=== PATIENT | male | born 1985 | race Caucasian/White ===

== ENCOUNTER 2017-02-12 13:05 | Inpatient (IN) | payer SELFPAY ==
[2017-02-12 14:53] VITALS: BMI 21.7
--- NOTE | 2017-02-12 15:42 | HP ---
COWS - Scale Resting Pulse: 0= [place] 80 or Below Sweatin=Flushed/Facial Moisture Restless Observation: 1= Difficult to Sit Still Pupil Size: 0= Normal to Room Light Bone or Joint Aches: 2= Severe Diffuse Aches Runny Nose/ Eye Tearin= Runny Nose/Eyes GI Upset > 30mins: 0= None Tremor Observation: 2= Slight Tremor Visible Yawning Observation: 2= >3x During Session Anxiety or Irritability: 2=Irritable/Anxious Goose Flesh Skin: 3=Piloerection COWS Score: 16 CIWA Score - CIWA Score Nausea/Vomitin-No Nausea/No Vomiting Muscle Tremors: 4-Moderate,w/Arms Extend Anxiety: 3 Agitation: 4-Moderately Restless Paroxysmal Sweats: 3 Orientation: 0-Oriented Tacttile Disturbances: 0-None Auditory Disturbances: 0-None Visual Disturbances: 0-None Headache: 1-Very Mild CIWA-Ar Total Score: 15 Admission ROS BHS - HPI Chief Complaint: I am here to detox off these drugs. Allergies/Adverse Reactions: Allergies Allergy/AdvReac Type Severity Reaction Status Date / Time No Known Allergies Allergy Verified 02/12/17 15:16 History of Present Illness: pt is a 31yr old male with a history of heroin and alcohol dependence seeking detox for treatment. Exam Limitations: No Limitations - Ebola screening Have you traveled outside of the country in the last 21 days: No Have you had contact with anyone from an Ebola affected area: No Have you been sick,other than usual withdrawal symptoms: No Do you have a fever: No - Review of Systems Constitutional: Chills, Diaphoresis, Loss of Appetite, Night Sweats, Changes in sleep, Unintentional Wgt. Loss Respiratory: reports: No Symptoms reported Cardiac: reports: No Symptoms Reported GI: reports: Poor Appetite, Poor Fluid Intake : reports: No Symptoms Reported Musculoskeletal: reports: Back Pain, Muscle Pain Integumentary: reports: Flushing, Sweating Neuro: reports: Tingling, Tremors Endocrine: reports: Excessive Sweating, Flushing Hematology: reports: No Symptoms Reported Psychiatric: reports: Judgement Intact, Orientated x3, Agitated, Anxious Other Systems: Reviewed and Negative Patient History - Patient Medical History Hx Anemia: No Hx Asthma: No Hx Chronic Obstructive Pulmonary Disease (COPD): No Hx Cancer: No Hx Cardiac Disorders: No Hx Congestive Heart Failure: No Hx Hypertension: No Hx Hypercholesterolemia: No Hx Pacemaker: No HX Cerebrovascular Accident: No Hx Seizures: No Hx Dementia: No Hx Diabetes: No Hx Gastrointestinal Disorders: Yes (ulcerative colitis) Hx Liver Disease: No Hx Genitourinary Disorders: No Hx Sexually Transmitted Disorders: No Hx Renal Disease (ESRD): No Hx Thyroid Disease: No Hx Human Immunodeficiency Virus (HIV): No (negative) Hx Hepatitis C: No (negative) Hx Depression: Yes Hx Suicide Attempt: No (denies) Hx Bipolar Disorder: No Hx Schizophrenia: No Other Medical History: insomnia/anxiety - Patient Surgical History Past Surgical History: No Hx Neurologic Surgery: No Hx Cataract Extraction: No Hx Cardiac Surgery: No Hx Lung Surgery: No Hx Breast Surgery: No Hx Breast Biopsy: No Hx Abdominal Surgery: No Hx Appendectomy: No Hx Cholecystectomy: No Hx Genitourinary Surgery: No Hx Section: No Hx Orthopedic Surgery: No Anesthesia Reaction: Yes - PPD History Previous Implant?: Yes Documented Results: Negative w/o proof Implanted On Prior R Admission?: No PPD to be Administered?: Yes - Reproductive History Patient is a Female of Child Bearing Age (11 -55 yrs old): No - Smoking Cessation Smoking history: Current every day smoker Have you smoked in the past 12 months: Yes Aproximately how many cigarettes per day: 30 Hx Chewing Tobacco Use: No Initiated information on smoking cessation: Yes 'Breaking Loose' booklet given: 02/12/17 - Substance & Tx. History Hx Alcohol Use: Yes Hx Substance Use: Yes Substance Use Type: Alcohol, Cocaine, Heroin Hx Substance Use Treatment: Yes - Substances Abused Heroin Route: Injection Frequency: Daily Amount used: 30 bags Age of first use: 17 Date of Last Use: 02/11/17 Cocaine Route: Injection Frequency: Daily Amount used: $150 Age of first use: 25 Date of Last Use: 02/12/17 Alcohol-rum Route: Oral Frequency: Daily Amount used: 1/2 liter Age of first use: 14 Date of Last Use: 02/11/17 Family Disease History - Family Disease History Family History: Denies Admission Physical Exam BHS - Vital Signs Vital Signs: Vital Signs - 24 hr 02/12/17 14:50 Temperature 97.0 F L Pulse Rate 71 Respiratory 18 Rate Blood Pressure 132/71 - Physical General Appearance: Yes: Appropriately Dressed, Moderate Distress, Thin, Tremorous, Irritable, Sweating, Anxious HEENTM: Yes: Normal Voice Respiratory: Yes: Lungs Clear, Normal Breath Sounds, No Respiratory Distress Neck: Yes: No masses,lesions,Nodules Breast: Yes: Within Normal Limits Cardiology: Yes: Regular Rhythm, Regular Rate, S1, S2 Abdominal: Yes: Normal Bowel Sounds Genitourinary: Yes: Within Normal Limits Back: Yes: Normal Inspection Musculoskeletal: Yes: Within Normal Limits Extremities: Yes: Normal Capillary Refill, Non-Tender, Tremors Neurological: Yes: Fully Oriented, Alert, Normal Response Integumentary: Yes: Normal Color, Diaphoresis, Track Hughes Lymphatic: Yes: Within Normal Limits - Diagnostic (1) Alcohol dependence with uncomplicated withdrawal Current Visit: Yes Status: Chronic (2) Cocaine dependence, uncomplicated Current Visit: Yes Status: Chronic (3) Nicotine dependence Current Visit: Yes Status: Chronic Qualifiers: Nicotine product type: cigarettes Substance use status: uncomplicated Qualified Code(s): F17.210 - Nicotine dependence, cigarettes, uncomplicated (4) Opioid dependence with withdrawal Current Visit: Yes Status: Chronic (5) H/O ulcerative colitis Current Visit: Yes Status: Inactive Cleared for Admission [facility] - Detox or Rehab [facility] Level of Care: Medically Managed Detox Regimen/Protocol: Methadone/Librium [facility] Breath Alcohol Content Breath Alcohol Content: 0 Urine Drug Screen - Results Drug Screen Negative: No Urine Drug Screen Results: THC-Marijuana, NIXON-Cocaine, OPI-Opiates, OXY- Oxycodone
[2017-02-12] MEDS ORDERED: IBUPROFEN 400 MG TABLET (FP) PO PRN (15:43)
[2017-02-12] MEDS ORDERED: ACETAMINOPHEN 325 MG TABLET (FP) PO PRN (15:43)
[2017-02-12] MEDS ORDERED: diphenhydrAMINE HCL 50 MG CAPSULE PO PRN (15:43)
[2017-02-12] MEDS ORDERED: MAGNESIUM CITRATE 300 ML BOTTLE PO PRN (15:43)
[2017-02-12] MEDS ORDERED: MAG HYDROX/AL HYDROX/SIMETH 30 ML UNIT-DOSE CUP PO PRN (15:43)
[2017-02-12] MEDS ORDERED: MENTHOL/PHENOL 1 EACH UD MM PRN (15:43)
[2017-02-12] MEDS ORDERED: LOPERAMIDE HCL 2 MG CAPSULE PO PRN (15:43)
[2017-02-12] MEDS ORDERED: MAGNESIUM HYDROX 2400MG/30ML ORAL SUSPENSION 30 ML CUP PO PRN (15:43)
[2017-02-12] MEDS ORDERED: chlordiazePOXIDE HCL 25 MG CAPSULE PO PRN (15:43)
[2017-02-12] MEDS ORDERED: P-EPHED 60MG/TRIPROLIDI 2.5MG TABLET PO PRN (15:43)
[2017-02-12] MEDS ORDERED: guaiFENesin/D-METHORPHAN HB 10 ML UNIT-DOSE CUPS PO PRN (15:43)
[2017-02-12] MEDS ORDERED: hydrOXYzine PAMOATE 50 MG CAPSULE (FP) PO PRN (15:43)
[2017-02-12] MEDS ORDERED: NICOTINE POLACRILEX 4 MG GUM BC PRN (15:43)
[2017-02-12] MEDS ORDERED: chlordiazePOXIDE HCL 25 MG CAPSULE PO ONE (17:30)
[2017-02-12] MEDS ORDERED: METHADONE HCL 10 MG TABLET (FOR DETOX USE ONLY) PO ONE ×2 (17:30→23:00)
[2017-02-12] MEDS: BACITRACIN 0.9 GM PACKET TP SCH (17:34)
[2017-02-12] MEDS: chlordiazePOXIDE HCL 25 MG CAPSULE PO SCH ×2 (17:34→22:33)
[2017-02-12] MEDS ORDERED: THIAMINE HCL 100 MG TABLET (FP) PO SCH (22:00)
[2017-02-12 23:16] LABS: URINE APPEARANCE SLCLOUDY; URINE BILIRUBIN NEGATIVE (NEGATIVE); URINE BLOOD NEGATIVE (NEGATIVE); URINE COLOR YELLOW; URINE GLUCOSE (UA) NEGATIVE (NEGATIVE); URINE KETONE NEGATIVE (NEGATIVE); URINE LEUK ESTERASE NEGATIVE (NEGATIVE); URINE NITRITE NEGATIVE (NEGATIVE); URINE PROTEIN NEGATIVE (NEGATIVE); URINE UROBILINOGEN 2.0 E.U/dl E.U./dl (0.2-1.0)
[2017-02-13] MEDS: chlordiazePOXIDE HCL 25 MG CAPSULE PO SCH ×2 (06:04→10:33)
[2017-02-13 09:56] LABS: MCH 28.6 pg (25.7-33.7); MCHC 33.3 g/dl (32.0-35.9); MEAN CELL VOLUME 85.7 fl (80-96); MEAN PLT VOLUME 8.1 fl (7.5-11.1); PLATELET COUNT 416 K/MM3 (134-434); RDW 14.5 % (11.9-15.9); WHITE BLOOD COUNT 10.1 K/mm3 (4.0-10.0)
[2017-02-13] MEDS ORDERED: PRENATAL VITAMINS W/ FOLIC ACID TABLET (FP) PO SCH (10:00)
[2017-02-13] MEDS ORDERED: METHADONE HCL 10 MG TABLET (FOR DETOX USE ONLY) PO SCH (10:00)
[2017-02-13] MEDS ORDERED: NICOTINE 21 MG/24 HOURS TOPICAL PATCH TD SCH (10:00)
[2017-02-13] MEDS: BACITRACIN 0.9 GM PACKET TP SCH (10:33)
[2017-02-13 10:44] LABS: ALBUMIN 3.4 g/dl (3.4-5.0); ALK PHOS 95 U/L (45-117); ANION GAP 8 (8-16); BILIRUBIN,TOTAL 0.3 mg/dL (0.2-1.0); CALCIUM 8.6 mg/dL (8.5-10.1); CO2 29 mmol/L (21-32); CREATININE 0.9 mg/dL (0.7-1.3); GLUCOSE,RANDOM 79 mg/dL (74-106); SGOT/AST 11 U/L (15-37); SGPT/ALT 29 U/L (12-78); TOT PROT 6.8 g/dl (6.4-8.2)
[2017-02-13 10:44] LABS: HIV 1 & 2 AB NEGATIVE; HIV 1 AGp24 NEGATIVE
--- NOTE | 2017-02-13 11:30 | CONSULT ---
[facility] Psychiatric Consult - Data Date of interview: 02/13/17 Admission source: [facility] Identifying data: Mr Velasco is a 31 years oldsingle male, unemployed with no source of income, homeless seeking detox treatment for alcohol, heroin and cocaine Substance Abuse History: - Smoking Cessation. Smoking history: Current every day smoker. Have you smoked in the past 12 months: Yes. Aproximately how many cigarettes per day: 30. Hx Chewing Tobacco Use: No. Initiated information on smoking cessation: Yes. 'Breaking Loose' booklet given: 02/12/17. - Substance & Tx. History. Hx Alcohol Use: Yes. Hx Substance Use: Yes. Substance Use Type : Alcohol, Cocaine, Heroin. Hx Substance Use Treatment: Yes. - Substances Abused. Heroin. Route: Injection. Frequency: Daily. Amount used: 30 bags. Age of first use: 17. Date of Last Use: 02/11/17. Cocaine. Route: Injection. Frequency: Daily. Amount used: $150. Age of first use: 25. Date of Last Use: 02/12/17. Alcohol-rum. Route: Oral. Frequency: Daily. Amount used: 1/2 liter. Age of first use: 14. Date of Last Use: 02/11/17 Medical History: Significant for Ulverative Colitis. Smokes cigarettes 1.5ppd Psychiatric History: Denies history of previous psychiatric treatment. However, reports feeling anxious and experiencing difficulty to sleep at present Mental Status Exam - Mental Status Exam Alert and Oriented to: Time, Place, Person Cognitive Function: Fair Patient Appearance: Well Groomed Mood: Anxious Affect: Appropriate Patient Behavior: Cooperative Speech Pattern: Clear Voice Loudness: Normal Thought Process: Intact Thought Disorder: Not Present Hallucinations: Denies Suicidal Ideation: Denies Homicidal Ideation: Denies Insight/Judgement: Poor Sleep: Poorly Appetite: Good Muscle strength/Tone: Normal Gait/Station: Normal Psychiatric Findings - Problem List ([place] 1, 2,3) (1) Substance-induced anxiety disorder Current Visit: Yes Status: Acute (2) Substance-induced sleep disorder Current Visit: Yes Status: Acute (3) Alcohol dependence with uncomplicated withdrawal Current Visit: Yes Status: Chronic (4) Opioid dependence with withdrawal Current Visit: Yes Status: Chronic (5) Cocaine dependence, uncomplicated Current Visit: Yes Status: Chronic (6) Nicotine dependence Current Visit: Yes Status: Chronic Qualifiers: Nicotine product type: cigarettes Substance use status: uncomplicated Qualified Code(s): F17.210 - Nicotine dependence, cigarettes, uncomplicated (7) H/O ulcerative colitis Current Visit: Yes Status: Inactive - Initial Treatment Plan Initial Treatment Plan: Start Ambien 10 mg po HS prn for insomnia. Benefits vs Risks of medication discussed with patient and he agreed to try it
--- NOTE | 2017-02-13 12:16 | PN ---
[facility] CIWA - CIWA Score Nausea/Vomitin Muscle Tremors: 4-Moderate,w/Arms Extend Anxiety: 2 Agitation: 2 Paroxysmal Sweats: 3 Orientation: 0-Oriented Tacttile Disturbances: 0-None Auditory Disturbances: 2-Mild Harshness/Frighten Visual Disturbances: 0-None Headache: 0-None Present CIWA-Ar Total Score: 16 BHS COWS - Scale Resting Pulse: 1= [place] 81-100 Sweatin= Chills/Flushing Restless Observation: 1= Difficult to Sit Still Pupil Size: 0= Normal to Room Light Bone or Joint Aches: 2= Severe Diffuse Aches Runny Nose/ Eye Tearin= Nasal Congestion GI Upset > 30mins: 1= Stomach Cramp Tremor Observation of Outstretched Hands: 2= Slight Tremor Visible Yawning Observation: 1= 1-2x During Session Anxiety or Irritability: 2=Irritable/Anxious Goose Flesh Skin: 3=Piloerection COWS Score: 15 S Progress Note (SOAP) Subjective: Interrupted Sleep, Sweating, Stomach cramping, Body Aches, Tremors. Objective: PT. A & O X 3. 02/13/17 12:13 Vital Signs Temperature 98.4 F 02/13/17 09:15 Pulse Rate 90 02/13/17 09:15 Respiratory Rate 20 02/13/17 09:15 Blood Pressure 129/82 02/13/17 09:15 O2 Sat by Pulse Oximetry (%) Laboratory Last Values WBC 10.1 K/mm3 (4.0-10.0) H 02/13/17 06:00 RBC 4.38 M/mm3 (4.00-5.60) 02/13/17 06:00 Hgb 12.5 GM/dL (11.7-16.9) 02/13/17 06:00 Hct 37.6 % (35.4-49) 02/13/17 06:00 MCV 85.7 fl (80-96) 02/13/17 06:00 MCHC 33.3 g/dl (32.0-35.9) 02/13/17 06:00 RDW 14.5 % (11.9-15.9) 02/13/17 06:00 Plt Count 416 K/MM3 (134-434) 02/13/17 06:00 MPV 8.1 fl (7.5-11.1) 02/13/17 06:00 Sodium 139 mmol/L (136-145) 02/13/17 06:00 Potassium 4.3 mmol/L (3.5-5.1) 02/13/17 06:00 Chloride 102 mmol/L (98-107) 02/13/17 06:00 Carbon Dioxide 29 mmol/L (21-32) 02/13/17 06:00 Anion Gap 8 (8-16) 02/13/17 06:00 BUN 20 mg/dL (7-18) H 02/13/17 06:00 Creatinine 0.9 mg/dL (0.7-1.3) 02/13/17 06:00 Creat Clearance w eGFR > 60 (>60) 02/13/17 06:00 Random Glucose 79 mg/dL (74-106) 02/13/17 06:00 Calcium 8.6 mg/dL (8.5-10.1) 02/13/17 06:00 Total Bilirubin 0.3 mg/dL (0.2-1.0) 02/13/17 06:00 AST 11 U/L (15-37) L 02/13/17 06:00 ALT 29 U/L (12-78) 02/13/17 06:00 Alkaline Phosphatase 95 U/L (45-117) 02/13/17 06:00 Total Protein 6.8 g/dl (6.4-8.2) 02/13/17 06:00 Albumin 3.4 g/dl (3.4-5.0) 02/13/17 06:00 Urine Color Yellow 02/12/17 23:00 Urine Appearance Slcloudy 02/12/17 23:00 Urine pH 6.0 (5.0-8.0) 02/12/17 23:00 Ur Specific [place] 1.025 (1.001-1.035) 02/12/17 23:00 Urine Protein Negative (NEGATIVE) 02/12/17 23:00 Urine Glucose (UA) Negative (NEGATIVE) 02/12/17 23:00 Urine Ketones Negative (NEGATIVE) 02/12/17 23:00 Urine Blood Negative (NEGATIVE) 02/12/17 23:00 Urine Nitrite Negative (NEGATIVE) 02/12/17 23:00 Urine Bilirubin Negative (NEGATIVE) 02/12/17 23:00 Urine Urobilinogen 2.0 e.u/dl E.U./dl (0.2-1.0) 02/12/17 23:00 Ur Leukocyte Esterase Negative (NEGATIVE) 02/12/17 23:00 RPR Titer Nonreactive (NONREACTIVE) 02/13/17 06:00 HIV 1&2 Antibody Screen Negative 02/12/17 08:50 HIV P24 Antigen Negative 02/12/17 08:50 LABS NOTED. Assessment: 02/13/17 12:14 WITHDRAWAL SYMPTOMS. Plan: CONTINUE DETOX. ADVISED PATIENT TO FOLLOW-UP WITH [facility] MEDICAL PROVIDER AFTER DISCHARGE FROM DETOX FOR GENERAL MEDICAL ASSESSMENT AND FOR ANY ABNORMAL ADMISSION LAB VALUES.
--- NOTE | 2017-02-13 13:16 | DS ---
[facility] Detox Discharge Summary Admission Date: 02/12/17 Discharge Date: 02/13/17 - History Present History: Alcohol Dependence, Cocaine Dependence, Opioid Dependence Additional Comments: ADVISED PATIENT TO FOLLOW-UP WITH [facility] FOR GENERAL MEDICAL ASSESSMENT. Pertinent Past History: Ulcerative Collitis, Depression. - Physical Exam Results Vital Signs: Vital Signs Temperature 98.4 F 02/13/17 09:15 Pulse Rate 90 02/13/17 09:15 Respiratory Rate 20 02/13/17 09:15 Blood Pressure 129/82 02/13/17 09:15 O2 Sat by Pulse Oximetry (%) Pertinent Admission Physical Exam Findings: WITHDRAWAL SYMPTOMS. Laboratory Last Values WBC 10.1 K/mm3 (4.0-10.0) H 02/13/17 06:00 RBC 4.38 M/mm3 (4.00-5.60) 02/13/17 06:00 Hgb 12.5 GM/dL (11.7-16.9) 02/13/17 06:00 Hct 37.6 % (35.4-49) 02/13/17 06:00 MCV 85.7 fl (80-96) 02/13/17 06:00 MCHC 33.3 g/dl (32.0-35.9) 02/13/17 06:00 RDW 14.5 % (11.9-15.9) 02/13/17 06:00 Plt Count 416 K/MM3 (134-434) 02/13/17 06:00 MPV 8.1 fl (7.5-11.1) 02/13/17 06:00 Sodium 139 mmol/L (136-145) 02/13/17 06:00 Potassium 4.3 mmol/L (3.5-5.1) 02/13/17 06:00 Chloride 102 mmol/L (98-107) 02/13/17 06:00 Carbon Dioxide 29 mmol/L (21-32) 02/13/17 06:00 Anion Gap 8 (8-16) 02/13/17 06:00 BUN 20 mg/dL (7-18) H 02/13/17 06:00 Creatinine 0.9 mg/dL (0.7-1.3) 02/13/17 06:00 Creat Clearance w eGFR > 60 (>60) 02/13/17 06:00 Random Glucose 79 mg/dL (74-106) 02/13/17 06:00 Calcium 8.6 mg/dL (8.5-10.1) 02/13/17 06:00 Total Bilirubin 0.3 mg/dL (0.2-1.0) 02/13/17 06:00 AST 11 U/L (15-37) L 02/13/17 06:00 ALT 29 U/L (12-78) 02/13/17 06:00 Alkaline Phosphatase 95 U/L (45-117) 02/13/17 06:00 Total Protein 6.8 g/dl (6.4-8.2) 02/13/17 06:00 Albumin 3.4 g/dl (3.4-5.0) 02/13/17 06:00 Urine Color Yellow 02/12/17 23:00 Urine Appearance Slcloudy 02/12/17 23:00 Urine pH 6.0 (5.0-8.0) 02/12/17 23:00 Ur Specific [place] 1.025 (1.001-1.035) 02/12/17 23:00 Urine Protein Negative (NEGATIVE) 02/12/17 23:00 Urine Glucose (UA) Negative (NEGATIVE) 02/12/17 23:00 Urine Ketones Negative (NEGATIVE) 02/12/17 23:00 Urine Blood Negative (NEGATIVE) 02/12/17 23:00 Urine Nitrite Negative (NEGATIVE) 02/12/17 23:00 Urine Bilirubin Negative (NEGATIVE) 02/12/17 23:00 Urine Urobilinogen 2.0 e.u/dl E.U./dl (0.2-1.0) 02/12/17 23:00 Ur Leukocyte Esterase Negative (NEGATIVE) 02/12/17 23:00 RPR Titer Nonreactive (NONREACTIVE) 02/13/17 06:00 HIV 1&2 Antibody Screen Negative 02/12/17 08:50 HIV P24 Antigen Negative 02/12/17 08:50 LABS NOTED. - Treatment Hospital Course: Detoxed Safely - Medication Discharge Medications: Ambulatory Orders Quetiapine Fumarate [Seroquel] 100 mg PO HS 02/12/17 - Diagnosis (1) Substance-induced anxiety disorder Current Visit: Yes Status: Acute (2) Substance-induced sleep disorder Current Visit: Yes Status: Acute (3) Alcohol dependence with uncomplicated withdrawal Current Visit: Yes Status: Acute (4) Cocaine dependence, uncomplicated Current Visit: Yes Status: Acute (5) Nicotine dependence Current Visit: Yes Status: Chronic Qualifiers: Nicotine product type: cigarettes Substance use status: uncomplicated Qualified Code(s): F17.210 - Nicotine dependence, cigarettes, uncomplicated (6) Opioid dependence with withdrawal Current Visit: Yes Status: Acute (7) H/O ulcerative colitis Current Visit: Yes Status: Chronic - AMA Did Patient Leave Against Medical Advice: Yes (PATIENT DID NOT WANT TO STAY TO COMPLETE DETOX PROTOCOL.)
[2017-02-13 14:23] VITALS: BP 129/91; PULSE 85; TEMP 98.2
--- NOTE | 2017-02-13 16:29 | EKG ---
Test Reason : Blood Pressure : / mmHG Vent. Rate : 060 BPM Atrial Rate : 060 BPM P-R Int : 140 ms QRS Dur : 102 ms QT Int : 430 ms P-R-T Axes : 077 063 050 degrees QTc Int : 430 ms NORMAL SINUS RHYTHM POSSIBLE LEFT ATRIAL ENLARGEMENT BORDERLINE ECG NO PREVIOUS ECGS AVAILABLE Confirmed by JASON SANDOVAL, ANGEL ([id number]) on 02/13/2017 4:28:49 PM Referred By: Confirmed By:ANGEL GOMEZ MD
[2017-02-13] MEDS ORDERED: chlordiazePOXIDE HCL 25 MG CAPSULE PO SCH (17:00)
[2017-02-13] MEDS ORDERED: ZOLPIDEM TARTRATE 10 MG TABLET (PARK CARE ONLY) PO PRN (22:00)
[2017-02-14] MEDS ORDERED: METHADONE HCL 5 MG TABLET (FOR DETOX USE ONLY) PO SCH (10:00)
[2017-02-14] MEDS ORDERED: chlordiazePOXIDE 5 MG CAPSULE PO SCH (17:00)
[2017-02-15] MEDS ORDERED: chlordiazePOXIDE HCL 10 MG CAPSULE PO SCH (17:00)
[2017-02-16] MEDS ORDERED: METHADONE HCL 10 MG TABLET (FOR DETOX USE ONLY) PO SCH (10:00)
[2017-02-17] MEDS ORDERED: METHADONE HCL 5 MG TABLET (FOR DETOX USE ONLY) PO SCH (06:00)
== END 2017-02-13 12:53 | disposition left against medical advice (07) | DRG 770 ==
LOC: YASAS 13:05 → Y3N 16:02
PROVIDERS: ADMIT Internal Medicine; ATTEND Internal Medicine
PROC: HZ2ZZZZ Detoxification Services for Substance Abuse Treatment (ICD-10-PCS; principal; 2017-02-13)
DX: F11.23 Opioid dependence with withdrawal (principal); F10.230 Alcohol dependence with withdrawal, uncomplicated; F14.20 Cocaine dependence, uncomplicated; F17.210 Nicotine dependence, cigarettes, uncomplicated; F19.280 Other psychoactive substance dependence with psychoactive substance-induced anxiety disorder; F19.282 Other psychoactive substance dependence with psychoactive substance-induced sleep disorder
CPT/HCPCS: 36415; 80053; 81003; 85027; 86593; 87389; 93005; 93010

== ENCOUNTER 2017-06-27 17:54 | Inpatient (IN) | payer MEDICARE ==
[2017-06-27 19:39] VITALS: BMI 20.9
--- NOTE | 2017-06-27 20:49 | HP ---
COWS - Scale Resting Pulse: 0= [place] 80 or Below Sweatin= Chills/Flushing Restless Observation: 1= Difficult to Sit Still Pupil Size: 1= Pupils >than Normal Bone or Joint Aches: 2= Severe Diffuse Aches Runny Nose/ Eye Tearin= Runny Nose/Eyes GI Upset > 30mins: 2= Nausea/Diarrhea Tremor Observation: 1= Tremor [place], Not Seen Yawning Observation: 1= 1-2x During Session Anxiety or Irritability: 1=Feels Anxious/Irritable Goose Flesh Skin: 3=Piloerection COWS Score: 15 CIWA Score - CIWA Score Nausea/Vomitin Muscle Tremors: 2 Anxiety: 2 Agitation: 2 Paroxysmal Sweats: 2 Orientation: 0-Oriented Tacttile Disturbances: 0-None Auditory Disturbances: 0-None Visual Disturbances: 2-Mild Sensitivity Headache: 1-Very Mild CIWA-Ar Total Score: 13 Admission ROS S - HPI Chief Complaint: WITHDRAWAL SYMPTOMS Allergies/Adverse Reactions: Allergies Allergy/AdvReac Type Severity Reaction Status Date / Time No Known Allergies Allergy Verified 02/12/17 15:16 History of Present Illness: 31 Y.O. MAN WITH AN EXTENSIVE HISTORY OF DRUG AND ALCOHOL DEPENDENCE IS HERE SEEKING DETOX. HE WAS LAST HERE FOR DETOX IN 02/2017 BUT LEFT AMA AFTER 1 DAY. HE REPORTS HAVING HISTORY OF 5 YEARS CLEAN. Exam Limitations: No Limitations - Ebola screening Have you traveled outside of the country in the last 21 days: No (N) Have you had contact with anyone from an Ebola affected area: No Have you been sick,other than usual withdrawal symptoms: No Do you have a fever: No - Review of Systems Constitutional: Chills, Loss of Appetite, Night Sweats, Unintentional Wgt. Loss EENT: reports: Tearing, Nose Congestion Respiratory: reports: No Symptoms reported Cardiac: reports: No Symptoms Reported GI: reports: Poor Appetite, Abdominal cramping : reports: No Symptoms Reported Musculoskeletal: reports: Back Pain, Joint Pain, Neck Pain Integumentary: reports: No Symptoms Reported Neuro: reports: Headache, Tremors Endocrine: reports: No Symptoms Reported Hematology: reports: No Symptoms Reported Psychiatric: reports: Orientated x3, other (INSOMNIA) Other Systems: Reviewed and Negative Patient History - Patient Medical History Hx Anemia: No Hx Asthma: No Hx Chronic Obstructive Pulmonary Disease (COPD): No Hx Cancer: No Hx Cardiac Disorders: No Hx Congestive Heart Failure: No Hx Hypertension: No Hx Hypercholesterolemia: No Hx Pacemaker: No HX Cerebrovascular Accident: No Hx Seizures: No Hx Dementia: No Hx Diabetes: No Hx Gastrointestinal Disorders: Yes (ulcerative colitis) Hx Liver Disease: No Hx Genitourinary Disorders: No Hx Sexually Transmitted Disorders: No Hx Renal Disease (ESRD): No Hx Thyroid Disease: No Hx Human Immunodeficiency Virus (HIV): No (negative) Hx Hepatitis C: No (negative) Hx Depression: Yes Hx Suicide Attempt: No (denies) Hx Bipolar Disorder: No Hx Schizophrenia: No - Patient Surgical History Past Surgical History: Yes Hx Neurologic Surgery: No Hx Cataract Extraction: No Hx Cardiac Surgery: No Hx Lung Surgery: No Hx Breast Surgery: No Hx Breast Biopsy: No Hx Abdominal Surgery: Yes (HERNIA REPAIR ) Hx Appendectomy: No Hx Cholecystectomy: No Hx Genitourinary Surgery: No Hx Section: No Hx Orthopedic Surgery: No Anesthesia Reaction: Yes - PPD History Previous Implant?: Yes Documented Results: Negative w/o proof Implanted On Prior R Admission?: Yes Date: 02/14/17 PPD to be Administered?: Yes - Reproductive History Patient is a Female of Child Bearing Age (11 -55 yrs old): No - Smoking Cessation Smoking history: Current every day smoker Have you smoked in the past 12 months: Yes Aproximately how many cigarettes per day: 30 Hx Chewing Tobacco Use: No Initiated information on smoking cessation: Yes 'Breaking Loose' booklet given: 06/27/17 - Substance & Tx. History Hx Alcohol Use: Yes Hx Substance Use: Yes Substance Use Type: Alcohol, Cocaine, Heroin Hx Substance Use Treatment: Yes (DETOX: 02/2017; REHAB: 2014) - Substances Abused Alcohol Frequency: Daily Amount used: 1 PINT OF LIQUOR Age of first use: 13 Date of Last Use: 06/25/17 Heroin Route: Injection Frequency: Daily Amount used: 2 BUNDLES Age of first use: 26 Date of Last Use: 06/27/17 Cocaine Route: Injection Frequency: Daily Amount used: $50 Age of first use: 29 Date of Last Use: 06/27/17 Family Disease History - Family Disease History Family Disease History: [place]: Father (PROSTATE [place] ) Admission Physical Exam BHS - Vital Signs Vital Signs: Vital Signs - 24 hr 06/27/17 19:35 Temperature 99.0 F Pulse Rate 78 Respiratory 18 Rate Blood Pressure 137/74 - Physical General Appearance: Yes: Appropriately Dressed, Thin, Sweating, Anxious HEENTM: Yes: Hearing grossly Normal, Normal ENT Inspection, Normocephalic Respiratory: Yes: Chest Non-Tender, Lungs Clear, Normal Breath Sounds, No Respiratory Distress, No Accessory Muscle Use Neck: Yes: No masses,lesions,Nodules, Trachea in good position Breast: Yes: Breast Exam Deferred Cardiology: Yes: Regular Rhythm, Regular Rate Abdominal: Yes: Normal Bowel Sounds, Non Tender, Flat, Soft Genitourinary: Yes: Other (NO COMPLAINTS REPORTED) Back: Yes: Normal Inspection Musculoskeletal: Yes: Gait Steady, Pelvis Stable Extremities: Yes: Normal Capillary Refill, Normal Inspection, Normal Range of Motion, Non-Tender Neurological: Yes: Fully Oriented, Alert, Normal Mood/Affect, Normal Response Integumentary: Yes: Normal Color, Dry, Warm, Track Hughes Lymphatic: Yes: Within Normal Limits - Diagnostic (1) Alcohol dependence with uncomplicated withdrawal Current Visit: Yes Status: Chronic (2) Cocaine dependence, uncomplicated Current Visit: Yes Status: Chronic (3) Opioid dependence with withdrawal Current Visit: Yes Status: Chronic (4) Nicotine dependence Current Visit: Yes Status: Chronic Qualifiers: Nicotine product type: cigarettes Substance use status: uncomplicated Qualified Code(s): F17.210 - Nicotine dependence, cigarettes, uncomplicated Cleared for Admission [facility] - Detox or Rehab [facility] Level of Care: Medically Managed Detox Regimen/Protocol: Methadone/Librium [facility] Breath Alcohol Content Breath Alcohol Content: 0 Urine Drug Screen - Results Drug Screen Negative: No Urine Drug Screen Results: NIXON-Cocaine, OPI-Opiates
[2017-06-27] MEDS ORDERED: NICOTINE POLACRILEX 4 MG GUM BC PRN (21:14)
[2017-06-27] MEDS ORDERED: MAG HYDROX/AL HYDROX/SIMETH 30 ML UNIT-DOSE CUP PO PRN (21:14)
[2017-06-27] MEDS ORDERED: ACETAMINOPHEN 325 MG TABLET (FP) PO PRN (21:14)
[2017-06-27] MEDS ORDERED: P-EPHED 60MG/TRIPROLIDI 2.5MG TABLET PO PRN (21:14)
[2017-06-27] MEDS ORDERED: chlordiazePOXIDE HCL 25 MG CAPSULE PO ONE (21:14)
[2017-06-27] MEDS ORDERED: guaiFENesin/D-METHORPHAN HB 10 ML UNIT-DOSE CUPS PO PRN (21:14)
[2017-06-27] MEDS ORDERED: METHADONE HCL 10 MG TABLET (FOR DETOX USE ONLY) PO ONE ×2 (21:14→23:00)
[2017-06-27] MEDS ORDERED: LOPERAMIDE HCL 2 MG CAPSULE PO PRN (21:14)
[2017-06-27] MEDS ORDERED: MAGNESIUM CITRATE 300 ML BOTTLE PO PRN (21:14)
[2017-06-27] MEDS ORDERED: hydrOXYzine PAMOATE 50 MG CAPSULE (FP) PO PRN (21:14)
[2017-06-27] MEDS ORDERED: chlordiazePOXIDE HCL 25 MG CAPSULE PO PRN (21:14)
[2017-06-27] MEDS ORDERED: MENTHOL/PHENOL 1 EACH UD MM PRN (21:14)
[2017-06-27] MEDS ORDERED: IBUPROFEN 400 MG TABLET (FP) PO PRN (21:14)
[2017-06-27] MEDS ORDERED: MAGNESIUM HYDROX 2400MG/30ML ORAL SUSPENSION 30 ML CUP PO PRN (21:14)
[2017-06-27] MEDS: THIAMINE HCL 100 MG TABLET (FP) PO SCH (22:46)
[2017-06-27] MEDS: chlordiazePOXIDE HCL 25 MG CAPSULE PO SCH (22:47)
[2017-06-27] MEDS: diphenhydrAMINE HCL 50 MG CAPSULE PO PRN (22:48)
[2017-06-28] MEDS: chlordiazePOXIDE HCL 25 MG CAPSULE PO SCH ×4 (05:44→22:55)
[2017-06-28] MEDS ORDERED: METHADONE HCL 10 MG TABLET (FOR DETOX USE ONLY) PO SCH (10:00)
[2017-06-28 11:06] LABS: MCH 28.5 pg (25.7-33.7); MCHC 33.9 g/dl (32.0-35.9); MEAN CELL VOLUME 83.9 fl (80-96); MEAN PLT VOLUME 7.6 fl (7.5-11.1); PLATELET COUNT 398 K/MM3 (134-434); RDW 16.1 % (11.9-15.9); WHITE BLOOD COUNT 9.9 K/mm3 (4.0-10.0)
[2017-06-28] MEDS: NICOTINE 21 MG/24 HOURS TOPICAL PATCH TD SCH (11:06)
[2017-06-28 11:07] LABS: URINE APPEARANCE SLCLOUDY; URINE BILIRUBIN NEGATIVE (NEGATIVE); URINE BLOOD NEGATIVE (NEGATIVE); URINE COLOR AMBER; URINE GLUCOSE (UA) NEGATIVE (NEGATIVE); URINE KETONE NEGATIVE (NEGATIVE); URINE LEUK ESTERASE NEGATIVE (NEGATIVE); URINE NITRITE NEGATIVE (NEGATIVE); URINE PROTEIN NEGATIVE (NEGATIVE); URINE UROBILINOGEN NEGATIVE mg/dL (0.2-1.0)
[2017-06-28 11:17] LABS: ALBUMIN 3.3 g/dl (3.4-5.0); ANION GAP 7 (8-16); CALCIUM 8.9 mg/dL (8.5-10.1); CO2 31 mmol/L (21-32); CREATININE 0.9 mg/dL (0.7-1.3); GLUCOSE,RANDOM 88 mg/dL (74-106); SGOT/AST 13 U/L (15-37); SGPT/ALT 17 U/L (12-78)
[2017-06-28 11:19] LABS: ALK PHOS 97 U/L (45-117); BILIRUBIN,TOTAL 0.5 mg/dL (0.2-1.0); TOT PROT 6.7 g/dl (6.4-8.2)
[2017-06-28] MEDS: PRENATAL VITAMINS W/ FOLIC ACID TABLET (FP) PO SCH (12:25)
--- NOTE | 2017-06-28 13:08 | CONSULT ---
[facility] Psychiatric Consult - Data Date of interview: 06/28/17 Admission source: [facility] Identifying data: Readmission to [facility] for this 31 y/o male seeking detox treatment on for alcohol,heroin and cocaine dependence.Patient is single without children,homeless,unemployed and deprived of any source of income. Substance Abuse History: Discussed with the patient.Mr Velasco declares this report consistent with his patterns of substance use. Smoking Cessation. Smoking history: Current every day smoker. Have you smoked in the past 12 months: Yes. Aproximately how many cigarettes per day: 30. Hx Chewing Tobacco Use: No. Initiated information on smoking cessation: Yes. 'Breaking Loose' booklet given: 06/27/17. - Substance & Tx. History. Hx Alcohol Use: Yes. Hx Substance Use: Yes. Substance Use Type: Alcohol, Cocaine, Heroin. Hx Substance Use Treatment: Yes (DETOX: 02/2017; REHAB: 2014). - Substances Abused. Alcohol. Frequency: Daily. Amount used: 1 PINT OF LIQUOR. Age of first use: 13. Date of Last Use: 06/25/17. Heroin. Route: Injection. Frequency: Daily. Amount used: 2 BUNDLES. Age of first use: 26. Date of Last Use: 06/27/17. Cocaine. Route: Injection. Frequency: Daily. Amount used: $50. Age of first use: 29. Date of Last Use: 06/27/17. Urine Drug Screen Results: THC-Marijuana, NIXON-Cocaine Medical History: History of ulcerative colitis and herniorraphy (undisclosed site). Psychiatric History: No reported history of psychiatric hospitalizations.Patient denies history of psychiatric illness.No OPD care.However,he has been prescribed seroquel 100 mg/hs (primary care physician) to address chronic insomnia.Mr Velasco denies suicide attempts. Physical/Sexual Abuse/Trauma History: Patient denies. Additional Comment: Urine Drug Screen Results: NIXON-Cocaine, OPI-Opiates.Noted. Mental Status Exam - Mental Status Exam Alert and Oriented to: Time, Place, Person Cognitive Function: Good Patient Appearance: Unkempt, Disheveled Mood: Nervous, Withdrawn, Anxious Affect: Mood Congruent Patient Behavior: Fatigued, Appropriate, Cooperative Speech Pattern: Clear Voice Loudness: Normal Thought Process: Goal Oriented Thought Disorder: Not Present Hallucinations: Denies Suicidal Ideation: Denies Homicidal Ideation: Denies Insight/Judgement: Poor Sleep: Poorly, Difficulty falling asleep Appetite: Good Muscle strength/Tone: Normal Gait/Station: Normal Psychiatric Findings - Problem List ([place] 1, 2,3) (1) Alcohol dependence with uncomplicated withdrawal Current Visit: Yes Status: Acute (2) Opioid dependence with withdrawal Current Visit: Yes Status: Acute (3) Cocaine dependence, uncomplicated Current Visit: Yes Status: Acute (4) Nicotine dependence Current Visit: Yes Status: Acute Qualifiers: Nicotine product type: cigarettes Substance use status: uncomplicated Qualified Code(s): F17.210 - Nicotine dependence, cigarettes, uncomplicated (5) Substance-induced sleep disorder Current Visit: Yes Status: Acute - Initial Treatment Plan Initial Treatment Plan: Psychoeducation.Detoxification in progress.Seroquel 100 mg po hs.Side effects/benefits discussed with the patient.He is in agreement with this careplan.Observation.
--- NOTE | 2017-06-28 18:44 | EKG ---
Test Reason : Blood Pressure : / mmHG Vent. Rate : 075 BPM Atrial Rate : 075 BPM P-R Int : 142 ms QRS Dur : 096 ms QT Int : 378 ms P-R-T Axes : 071 064 056 degrees QTc Int : 422 ms NORMAL SINUS RHYTHM INCOMPLETE RIGHT BUNDLE BRANCH BLOCK BORDERLINE ECG WHEN COMPARED WITH ECG OF 12-FEB-2017 15:56, NO SIGNIFICANT CHANGE WAS FOUND Confirmed by TUYET SAWYER MD ([id number]) on 06/28/2017 6:44:15 PM Referred By: Confirmed By:TUYET SAWYER MD
--- NOTE | 2017-06-28 21:32 | PN ---
[facility] CIWA - CIWA Score Nausea/Vomitin-No Nausea/No Vomiting Muscle Tremors: 4-Moderate,w/Arms Extend Anxiety: 3 Agitation: 2 Paroxysmal Sweats: 3 Orientation: 0-Oriented Tacttile Disturbances: 3-Moderate Itch/Numb/Burn Auditory Disturbances: 0-None Visual Disturbances: 2-Mild Sensitivity Headache: 0-None Present CIWA-Ar Total Score: 17 S COWS - Scale Resting Pulse: 0= [place] 80 or Below Sweatin= Chills/Flushing Restless Observation: 1= Difficult to Sit Still Pupil Size: 0= Normal to Room Light Bone or Joint Aches: 2= Severe Diffuse Aches Runny Nose/ Eye Tearin= Nasal Congestion GI Upset > 30mins: 1= Stomach Cramp Tremor Observation of Outstretched Hands: 2= Slight Tremor Visible Yawning Observation: 1= 1-2x During Session Anxiety or Irritability: 2=Irritable/Anxious Goose Flesh Skin: 3=Piloerection COWS Score: 14 [facility] Progress Note (SOAP) Subjective: Interrupted Sleep, Tremors, Body Aches, sweating. Objective: PT. A & O X 3, OBSERVED AMBULATING ON UNIT. NO ACUTE DISTRESS. 06/28/17 21:30 Vital Signs Temperature 98.0 F 06/28/17 19:07 Pulse Rate 61 06/28/17 19:07 Respiratory Rate 61 H 06/28/17 19:07 Blood Pressure 107/66 06/28/17 19:07 O2 Sat by Pulse Oximetry (%) Laboratory Tests 06/27/17 06/28/17 06/28/17 10:55 08:00 08:00 WBC 9.9 RBC 4.41 Hgb 12.6 Hct 37.0 MCV 83.9 MCH 28.5 MCHC 33.9 RDW 16.1 H D Plt Count 398 MPV 7.6 Sodium 140 Potassium 4.1 Chloride 102 Carbon Dioxide 31 Anion Gap 7 L BUN 13 D Creatinine 0.9 Creat Clearance w eGFR > 60 Random Glucose 88 Calcium 8.9 Total Bilirubin 0.5 D AST 13 L ALT 17 D Alkaline Phosphatase 97 Total Protein 6.7 Albumin 3.3 L Urine Color [place] Urine Appearance Slcloudy Urine pH 5.0 Ur Specific [place] >= 1.030 H Urine Protein Negative Urine Glucose (UA) Negative Urine Ketones Negative Urine Blood Negative Urine Nitrite Negative Urine Bilirubin Negative Urine Urobilinogen Negative Ur Leukocyte Esterase Negative RPR Titer 06/28/17 08:00 WBC RBC Hgb Hct MCV MCH MCHC RDW Plt Count MPV Sodium Potassium Chloride Carbon Dioxide Anion Gap BUN Creatinine Creat Clearance w eGFR Random Glucose Calcium Total Bilirubin AST ALT Alkaline Phosphatase Total Protein Albumin Urine Color Urine Appearance Urine pH Ur Specific [place] Urine Protein Urine Glucose (UA) Urine Ketones Urine Blood Urine Nitrite Urine Bilirubin Urine Urobilinogen Ur Leukocyte Esterase RPR Titer Nonreactive LABS NOTED. Assessment: 06/28/17 21:30 WITHDRAWAL SYMPTOMS. Plan: CONTINUED DETOX.
[2017-06-28] MEDS: QUEtiapine FUMARATE 100 MG TABLET (FP) PO SCH (22:54)
[2017-06-28] MEDS: diphenhydrAMINE HCL 50 MG CAPSULE PO PRN (22:55)
[2017-06-28] MEDS: THIAMINE HCL 100 MG TABLET (FP) PO SCH (22:55)
[2017-06-29] MEDS: chlordiazePOXIDE HCL 25 MG CAPSULE PO SCH ×3 (06:01→17:18)
[2017-06-29] MEDS ORDERED: METHADONE HCL 5 MG TABLET (FOR DETOX USE ONLY) PO SCH (10:00)
[2017-06-29] MEDS: PRENATAL VITAMINS W/ FOLIC ACID TABLET (FP) PO SCH (10:57)
[2017-06-29] MEDS: NICOTINE 21 MG/24 HOURS TOPICAL PATCH TD SCH (10:57)
--- NOTE | 2017-06-29 16:45 | PN ---
S CIWA - CIWA Score Nausea/Vomitin Muscle Tremors: 4-Moderate,w/Arms Extend Anxiety: 4-Mod. Anxious/Guarded Agitation: 4-Moderately Restless Paroxysmal Sweats: 3 Orientation: 0-Oriented Tacttile Disturbances: 1-Very Mild Itch/Numbness Auditory Disturbances: 0-None Visual Disturbances: 0-None Headache: 3-Moderate CIWA-Ar Total Score: 22 [facility] COWS - Scale Resting Pulse: 1= [place] 81-100 Sweatin=Flushed/Facial Moisture Restless Observation: 3= Extraneous Movement Pupil Size: 1= Pupils >than Normal Bone or Joint Aches: 2= Severe Diffuse Aches Runny Nose/ Eye Tearin= Runny Nose/Eyes GI Upset > 30mins: 1= Stomach Cramp Tremor Observation of Outstretched Hands: 2= Slight Tremor Visible Yawning Observation: 1= 1-2x During Session Anxiety or Irritability: 2=Irritable/Anxious Goose Flesh Skin: 0=Smooth Skin COWS Score: 17 S Progress Note (SOAP) Subjective: Chills, tremor, headache, sweating, anxious Objective: 06/29/17 16:44 Last Vital Signs Temp Pulse Resp BP Pulse Ox 97.8 F 101 H 16 121/75 06/29/17 13:54 06/29/17 13:54 06/29/17 13:54 06/29/17 13:54 Laboratory Tests 06/27/17 06/28/17 06/28/17 10:55 08:00 08:00 WBC 9.9 RBC 4.41 Hgb 12.6 Hct 37.0 MCV 83.9 MCH 28.5 MCHC 33.9 RDW 16.1 H D Plt Count 398 MPV 7.6 Sodium 140 Potassium 4.1 Chloride 102 Carbon Dioxide 31 Anion Gap 7 L BUN 13 D Creatinine 0.9 Creat Clearance w eGFR > 60 Random Glucose 88 Calcium 8.9 Total Bilirubin 0.5 D AST 13 L ALT 17 D Alkaline Phosphatase 97 Total Protein 6.7 Albumin 3.3 L Urine Color Silvia Urine Appearance Slcloudy Urine pH 5.0 Ur Specific [place] >= 1.030 H Urine Protein Negative Urine Glucose (UA) Negative Urine Ketones Negative Urine Blood Negative Urine Nitrite Negative Urine Bilirubin Negative Urine Urobilinogen Negative Ur Leukocyte Esterase Negative RPR Titer 06/28/17 08:00 WBC RBC Hgb Hct MCV MCH MCHC RDW Plt Count MPV Sodium Potassium Chloride Carbon Dioxide Anion Gap BUN Creatinine Creat Clearance w eGFR Random Glucose Calcium Total Bilirubin AST ALT Alkaline Phosphatase Total Protein Albumin Urine Color Urine Appearance Urine pH Ur Specific [place] Urine Protein Urine Glucose (UA) Urine Ketones Urine Blood Urine Nitrite Urine Bilirubin Urine Urobilinogen Ur Leukocyte Esterase RPR Titer Nonreactive Labs noted Assessment: 06/29/17 16:45 Withdrawal symptoms Plan: Continue detox
[2017-06-29] MEDS: QUEtiapine FUMARATE 100 MG TABLET (FP) PO SCH (22:43)
[2017-06-29] MEDS: THIAMINE HCL 100 MG TABLET (FP) PO SCH (22:43)
[2017-06-29] MEDS: chlordiazePOXIDE 5 MG CAPSULE PO SCH (22:43)
[2017-06-29] MEDS: diphenhydrAMINE HCL 50 MG CAPSULE PO PRN (22:44)
[2017-06-30] MEDS: chlordiazePOXIDE 5 MG CAPSULE PO SCH (06:11)
[2017-06-30 06:26] VITALS: BP 126/77; PULSE 56; TEMP 97.7
--- NOTE | 2017-06-30 10:06 | PN ---
[facility] Progress Note (SOAP) Subjective: Sweating,interrupted sleep,restless Objective: 06/30/17 10:05 Vital Signs - 8 hr 06/30/17 06/30/17 03:55 06:15 Temperature 97.7 F Pulse Rate 56 L Respiratory 18 18 Rate Blood Pressure 126/77 Laboratory Last Values WBC 9.9 K/mm3 (4.0-10.0) 06/28/17 08:00 RBC 4.41 M/mm3 (4.00-5.60) 06/28/17 08:00 Hgb 12.6 GM/dL (11.7-16.9) 06/28/17 08:00 Hct 37.0 % (35.4-49) 06/28/17 08:00 MCV 83.9 fl (80-96) 06/28/17 08:00 MCH 28.5 pg (25.7-33.7) 06/28/17 08:00 MCHC 33.9 g/dl (32.0-35.9) 06/28/17 08:00 RDW 16.1 % (11.9-15.9) H D 06/28/17 08:00 Plt Count 398 K/MM3 (134-434) 06/28/17 08:00 MPV 7.6 fl (7.5-11.1) 06/28/17 08:00 Sodium 140 mmol/L (136-145) 06/28/17 08:00 Potassium 4.1 mmol/L (3.5-5.1) 06/28/17 08:00 Chloride 102 mmol/L (98-107) 06/28/17 08:00 Carbon Dioxide 31 mmol/L (21-32) 06/28/17 08:00 Anion Gap 7 (8-16) L 06/28/17 08:00 BUN 13 mg/dL (7-18) D 06/28/17 08:00 Creatinine 0.9 mg/dL (0.7-1.3) 06/28/17 08:00 Creat Clearance w eGFR > 60 (>60) 06/28/17 08:00 Random Glucose 88 mg/dL (74-106) 06/28/17 08:00 Calcium 8.9 mg/dL (8.5-10.1) 06/28/17 08:00 Total Bilirubin 0.5 mg/dL (0.2-1.0) D 06/28/17 08:00 AST 13 U/L (15-37) L 06/28/17 08:00 ALT 17 U/L (12-78) D 06/28/17 08:00 Alkaline Phosphatase 97 U/L (45-117) 06/28/17 08:00 Total Protein 6.7 g/dl (6.4-8.2) 06/28/17 08:00 Albumin 3.3 g/dl (3.4-5.0) L 06/28/17 08:00 Urine Color [place] 06/27/17 10:55 Urine Appearance Slcloudy 06/27/17 10:55 Urine pH 5.0 (5.0-8.0) 06/27/17 10:55 Ur Specific [place] >= 1.030 (1.005-1.025) H 06/27/17 10:55 Urine Protein Negative (NEGATIVE) 06/27/17 10:55 Urine Glucose (UA) Negative (NEGATIVE) 06/27/17 10:55 Urine Ketones Negative (NEGATIVE) 06/27/17 10:55 Urine Blood Negative (NEGATIVE) 06/27/17 10:55 Urine Nitrite Negative (NEGATIVE) 06/27/17 10:55 Urine Bilirubin Negative (NEGATIVE) 06/27/17 10:55 Urine Urobilinogen Negative mg/dL (0.2-1.0) 06/27/17 10:55 Ur Leukocyte Esterase Negative (NEGATIVE) 06/27/17 10:55 RPR Titer Nonreactive (NONREACTIVE) 06/28/17 08:00 labs noted Assessment: 06/30/17 10:06 withdrawal sx. Plan: Continue detox
--- NOTE | 2017-06-30 10:09 | DS ---
[facility] Detox Discharge Summary Admission Date: 06/27/17 Discharge Date: 06/30/17 - History Present History: Alcohol Dependence, Cocaine Dependence, Opioid Dependence Pertinent Past History: Ulcerative Colitis by hx. - Physical Exam Results Vital Signs: Vital Signs Temperature 97.7 F 06/30/17 06:15 Pulse Rate 56 L 06/30/17 06:15 Respiratory Rate 18 06/30/17 06:15 Blood Pressure 126/77 06/30/17 06:15 O2 Sat by Pulse Oximetry (%) Pertinent Admission Physical Exam Findings: Withdrawal sx. Laboratory Last Values WBC 9.9 K/mm3 (4.0-10.0) 06/28/17 08:00 RBC 4.41 M/mm3 (4.00-5.60) 06/28/17 08:00 Hgb 12.6 GM/dL (11.7-16.9) 06/28/17 08:00 Hct 37.0 % (35.4-49) 06/28/17 08:00 MCV 83.9 fl (80-96) 06/28/17 08:00 MCH 28.5 pg (25.7-33.7) 06/28/17 08:00 MCHC 33.9 g/dl (32.0-35.9) 06/28/17 08:00 RDW 16.1 % (11.9-15.9) H D 06/28/17 08:00 Plt Count 398 K/MM3 (134-434) 06/28/17 08:00 MPV 7.6 fl (7.5-11.1) 06/28/17 08:00 Sodium 140 mmol/L (136-145) 06/28/17 08:00 Potassium 4.1 mmol/L (3.5-5.1) 06/28/17 08:00 Chloride 102 mmol/L (98-107) 06/28/17 08:00 Carbon Dioxide 31 mmol/L (21-32) 06/28/17 08:00 Anion Gap 7 (8-16) L 06/28/17 08:00 BUN 13 mg/dL (7-18) D 06/28/17 08:00 Creatinine 0.9 mg/dL (0.7-1.3) 06/28/17 08:00 Creat Clearance w eGFR > 60 (>60) 06/28/17 08:00 Random Glucose 88 mg/dL (74-106) 06/28/17 08:00 Calcium 8.9 mg/dL (8.5-10.1) 06/28/17 08:00 Total Bilirubin 0.5 mg/dL (0.2-1.0) D 06/28/17 08:00 AST 13 U/L (15-37) L 06/28/17 08:00 ALT 17 U/L (12-78) D 06/28/17 08:00 Alkaline Phosphatase 97 U/L (45-117) 06/28/17 08:00 Total Protein 6.7 g/dl (6.4-8.2) 06/28/17 08:00 Albumin 3.3 g/dl (3.4-5.0) L 06/28/17 08:00 Urine Color [place] 06/27/17 10:55 Urine Appearance Slcloudy 06/27/17 10:55 Urine pH 5.0 (5.0-8.0) 06/27/17 10:55 Ur Specific [place] >= 1.030 (1.005-1.025) H 06/27/17 10:55 Urine Protein Negative (NEGATIVE) 06/27/17 10:55 Urine Glucose (UA) Negative (NEGATIVE) 06/27/17 10:55 Urine Ketones Negative (NEGATIVE) 06/27/17 10:55 Urine Blood Negative (NEGATIVE) 06/27/17 10:55 Urine Nitrite Negative (NEGATIVE) 06/27/17 10:55 Urine Bilirubin Negative (NEGATIVE) 06/27/17 10:55 Urine Urobilinogen Negative mg/dL (0.2-1.0) 06/27/17 10:55 Ur Leukocyte Esterase Negative (NEGATIVE) 06/27/17 10:55 RPR Titer Nonreactive (NONREACTIVE) 06/28/17 08:00 labs noted - Treatment Hospital Course: Detox Protocol Followed, Detoxed Safely, Responded well, Discharged Condition Good, Rehab Referral Accepted Patient has Accepted a Rehab Referral to: [facility] in [place], [place] - Medication Discharge Medications: Ambulatory Orders Quetiapine Fumarate [Seroquel] 100 mg PO HS 02/12/17 Quetiapine Fumarate [Seroquel] 100 mg PO HS #30 tablet 06/28/17 - Diagnosis (1) Alcohol dependence with uncomplicated withdrawal Current Visit: Yes Status: Acute (2) Cocaine dependence, uncomplicated Current Visit: Yes Status: Acute (3) Nicotine dependence Current Visit: Yes Status: Acute Qualifiers: Nicotine product type: cigarettes Substance use status: uncomplicated Qualified Code(s): F17.210 - Nicotine dependence, cigarettes, uncomplicated (4) Opioid dependence with withdrawal Current Visit: Yes Status: Acute (5) Substance-induced sleep disorder Current Visit: Yes Status: Acute (6) Substance-induced anxiety disorder Current Visit: No Status: Acute (7) H/O ulcerative colitis Current Visit: No Status: Chronic - AMA Did Patient Leave Against Medical Advice: Yes
[2017-06-30] MEDS ORDERED: chlordiazePOXIDE HCL 10 MG CAPSULE PO SCH (23:00)
[2017-07-01] MEDS ORDERED: METHADONE HCL 10 MG TABLET (FOR DETOX USE ONLY) PO SCH (10:00)
[2017-07-02] MEDS ORDERED: METHADONE HCL 5 MG TABLET (FOR DETOX USE ONLY) PO SCH (06:00)
== END 2017-06-30 09:51 | disposition left against medical advice (07) | DRG 770 ==
LOC: YASAS 17:54 → Y3N 20:46
PROVIDERS: ADMIT Internal Medicine; ATTEND Internal Medicine
PROC: HZ2ZZZZ Detoxification Services for Substance Abuse Treatment (ICD-10-PCS; principal; 2017-06-27)
DX: F11.23 Opioid dependence with withdrawal (principal); F10.230 Alcohol dependence with withdrawal, uncomplicated; F14.20 Cocaine dependence, uncomplicated; F17.210 Nicotine dependence, cigarettes, uncomplicated; F19.280 Other psychoactive substance dependence with psychoactive substance-induced anxiety disorder; F19.282 Other psychoactive substance dependence with psychoactive substance-induced sleep disorder
CPT/HCPCS: 36415; 80053; 81003; 85027; 86593; 93005; 93010